=== PATIENT | male | born 1960 | race Caucasian/White ===

== ENCOUNTER 2023-01-26 04:32 | Day surgery (SDC) | payer BC, OTHER ==
[2023-01-21 09:29] VITALS: BMI 29.9
[2023-01-26] MEDS ORDERED: LIDOCAINE HCL 1%, 10 MG/ML (20ML VIAL) ONE (07:41)
[2023-01-26 09:25] VITALS: RESP 20
[2023-01-26] MEDS ORDERED: LIDOCAINE HCL 1%, 10 MG/ML (20ML VIAL) INF ONE (11:35)
[2023-01-26 13:54] VITALS: BP 141/94; PULSE 78; TEMP 98
== END 2023-01-26 13:00 | disposition home or self-care (01) ==
LOC: JASU-SURG 04:32
PROVIDERS: ATTEND Orthopaedic Surgery
PROC: 015D3ZZ Destruction of Femoral Nerve, Percutaneous Approach (ICD-10-PCS; principal; 2023-01-26 09:00)
DX: M17.12 Unilateral primary osteoarthritis, left knee (principal)